=== PATIENT | male | born 1970 | race Caucasian/White ===

== ENCOUNTER 2019-05-18 08:31 | Emergency (ER) | payer BC ==
[~2019-05-18] VITALS: Ht 180.3 cm; Wt 91.2 kg
[~2019-05-18 08:31] MED LIST: AZIT500T3 PO; LACT1CAP57 PO
[2019-05-18 08:36] VITALS: BP 120/68; PULSE 78; RESP 18; Ht 180.3 cm; Wt 91.2 kg
== END 2019-05-18 09:21 | disposition home or self-care (01) ==
LOC: FTE 08:31
DX: R19.7 Diarrhea, unspecified (principal)
CPT/HCPCS: 99283